=== PATIENT | female | born 1945 | race Caucasian/White ===

== ENCOUNTER → 2016-12-04 | Outpatient (CLI) | payer OTHER ==
[~2016-12-04] MED LIST: ALEVE220 M2 PO; ASPIRIN EC325 MG PO; BENICAR40 MG PO; CALCIUM 600 +1 EA15 PO; CRESTOR10 MG PO; HYDROCHLOROTH12.5 M3 PO; HYDROCODON-ACE1 EAC7 PO; IRON325 M1 PO; PROTONIX40 MG PO; SENNA-TIME S T1 EACH PO
== END | disposition home or self-care (01) ==
DX: R26.2 Difficulty in walking, not elsewhere classified (principal); M25.552 Pain in left hip; M25.652 Stiffness of left hip, not elsewhere classified; M62.81 Muscle weakness (generalized)
CPT/HCPCS: 97110 GP; 97150 GO; 97161 GP; 97165 GO; G8978 GP; G8979 GP; G8980 GP; G8987 GO; G8988 GO; G8989 GO

== ENCOUNTER 2016-12-17 05:24 | Inpatient (IN) | payer OTHER ==
[~2016-12-17] VITALS: Ht 152.4 cm; Wt 81.9 kg
[~2016-12-17 05:24] MED LIST changes: +ANTIVERT25 MG PO; +NOLVADEX20 MG PO
[2016-12-17 06:33] VITALS: BP 170/82
[2016-12-17 10:00] LABS: HEMATOCRIT 31.7 % (36.0-46.0); MCH 29.3 PG (29.0-34.0); MCHC 31.9 G/DL (30.0-36.0); MCV 91.9 FL (83-99); MEAN PLAT.VOLUME 10.5 uM^3 (9.5-12.4); PLATELET COUNT 156 K/uL (156-360); RBC DIS.WIDTH-CV 13.1 % (11.8-14.6); RBC DIS.WIDTH-SD 43.8 % (39-53); RED BLOOD COUNT 3.45 M/uL (3.80-5.20)
[2016-12-17 10:32] VITALS: BP 119/55
[2016-12-17 15:40] VITALS: BP 127/73
[2016-12-17 19:33] VITALS: BP 127/69
[2016-12-18] VITALS (8 sets, daily range): BP systolic 112–147; BP diastolic 53–76
[2016-12-18 05:26] LABS: HEMATOCRIT 33.8 % (36.0-46.0); MCV 91.6 FL (83-99)
[2016-12-18 05:57] LABS: ANION GAP 9 MEQ/L (2-14); CHLORIDE 100 MEQ/L (99-109); GFR ESTIMATE (CALCULATED) 58 mL/min/; GLUCOSE 110 mg/dL (70-99); POTASSIUM 4.4 MEQ/L (3.7-5.4); SAMPLE HEMOLYSIS CHECK 0; SAMPLE ICTERIC CHECK 0; SAMPLE LIPEMIA CHECK 0; SODIUM 133 MEQ/L (136-147); UREA NITROGEN (BUN) 18 mg/dL (9-23)
[2016-12-19 04:00] VITALS: BP 97/51
[2016-12-19 05:54] LABS: HEMATOCRIT 30.3 % (36.0-46.0); MCV 91.5 FL (83-99)
[2016-12-19 08:00] VITALS: BP 129/58
[2016-12-19] MEDS ORDERED: LOVENOX40 MG/0.4 SC (08:31)
[2016-12-19] MEDS ORDERED: OXYCONTIN10 MG PO (08:31)
[2016-12-19] MEDS ORDERED: CELECOXIB200 MG PO (08:31)
[2016-12-19] MEDS ORDERED: ENDOCET 5-3251 EACH PO (08:31)
[2016-12-19 11:46] VITALS: BP 110/56
== END 2016-12-19 14:45 | DRG 470 ==
LOC: 2SOUTH → 3WEST 10:22 → 2SOUTH 10:37 → 3WEST 12-19 14:45
PROVIDERS: Orthopaedic Surgery
PROC: 0SRD0J9 Replacement of Left Knee Joint with Synthetic Substitute, Cemented, Open Approach (ICD-10-PCS; principal; 2016-12-17)
DX: M17.12 Unilateral primary osteoarthritis, left knee (principal); I10 Essential (primary) hypertension; E78.5 Hyperlipidemia, unspecified; K21.9 Gastro-esophageal reflux disease without esophagitis; F32.9 Major depressive disorder, single episode, unspecified
CPT/HCPCS: 73560; 80048; 85014; 85018; 85027; C1713; J0690; J1170; J1650; J2250; J3010; J7030; J7050